=== PATIENT | female | born 1985 | race Two or more races ===

== ENCOUNTER 2019-10-20 05:47 | Emergency (ER) | payer SELFPAY ==
[~2019-10-20] VITALS: Ht 160 cm; Wt 77.3 kg
[2019-10-20] MEDS ORDERED: IBUPROFEN 600 MG TABLET PO ONE (06:30)
[2019-10-20 07:45] VITALS: BP 124/77
== END 2019-10-20 07:55 | disposition home or self-care (01) ==
LOC: EMS 05:47
DX: S60.041A Contusion of right ring finger without damage to nail, initial encounter (principal); S60.031A Contusion of right middle finger without damage to nail, initial encounter; F17.210 Nicotine dependence, cigarettes, uncomplicated; F12.90 Cannabis use, unspecified, uncomplicated; W23.0XXA Caught, crushed, jammed, or pinched between moving objects, initial encounter; Y93.89 Activity, other specified; Y92.89 Other specified places as the place of occurrence of the external cause; Y99.8 Other external cause status